=== PATIENT | female | born 1975 | race Caucasian/White ===

== ENCOUNTER 2016-11-12 19:43 | Emergency (ER) | payer OTHER ==
[2016-11-12 19:28] LABS: URINE SOURCE CLEAN CATCH
[2016-11-12 19:30] LABS: URINE APPEARANCE CLEAR; URINE BILIRUBIN NEG (NEG); URINE BLOOD NEG (NEG); URINE COLOR YELLOW; URINE GLUCOSE NEG (NORM); URINE KETONE NEG (NEG); URINE LEUKOCYTE ESTERASE NEG (NEG); URINE NITRATE NEG (NEG); URINE PROTEIN NEG (NEG); URINE SPECIFIC GRAVITY >=1.030 (1.003-1.035); URINE UROBILINOGEN 0.2 MG/DL (NORM)
[2016-11-12 19:31] LABS: MICRO INDICATED? NO
[2016-11-12 19:34] LABS: BASOPHIL# 0.1 X10e3 (0-0.3); BASOPHIL% 0.9 % (0-2.5); EOSINOPHIL# 0.1 X10e3 (0-0.7); HEMATOCRIT 37.1 % (35.0-45.0); HEMOGLOBIN 12.4 gm/dL (12.0-16.0); LYMPHOCYTE# 2.4 X10e3 (1.0-3.5); LYMPHOCYTE% 33.6 % (17.0-45.0); MEAN CORPUSCULAR HEMOGLOBIN 30.4 PG (28-34); MEAN CORPUSCULAR HGB CONC 33.4 g/dL (30-36); MEAN PLATELET VOLUME 7.7 FL (6.5-11.5); MONOCYTE# 0.5 X10e3 (0-1.0); MONOCYTE% 7.6 % (3.0-12.0); NEUTROPHIL% 55.9 % (40-75); PLATELET COUNT 263 X10e3 (140-420); RED BLOOD COUNT 4.08 X10e (3.90-5.30); RED CELL DISTRIBUTION WIDTH 15.1 % (11.0-15.5); WHITE BLOOD COUNT 7.2 X10e3 (4.0-10.5)
[2016-11-12 19:35] LABS: DIFF IND NO
[~2016-11-12 19:43] MED LIST: ALPRAZOLAM PO; ALPRAZOLAM1 MG PO; ATENOLOL25 MG PO; BENADRYL PO; BENTYL20 M1 PO; CELEXA PO; DIPHENHYDRAMINE25 M1 PO; DOXEPIN PO; EFFEXOR50 MG; FLUOXETINE HCL40 M1 PO; HYDROCHLOROTHIA25 MG PO; LORTAB 5/500 TA1 TA1 PO; MOBIC PO; NAPROXEN250 MG PO; NEURONTIN; NO MEDICATIONS; ORUDIS75 M1 PO; PROVERA PO; PROZAC PO; TORADOL10 MG PO; TYLENOL #3 PO; XANAX1 MG PO
[2016-11-12 19:50] LABS: ALBUMIN SERUM 3.8 g/dL (3.5-5.0); ALKALINE PHOSPHATASE 48 U/L (32-92); ALT (SGPT) 11 U/L (10-40); AST (SGOT) 14 U/L (10-42); BILIRUBIN,TOTAL 0.1 mg/dL (0.2-2.0); BLOOD UREA NITROGEN 18 mg/dL (9-23); BUN/CREATININE RATIO 16.36; CALCIUM SERUM 8.9 mg/dL (8.4-10.2); CARBON DIOXIDE 25 mmol/L (22-31); CHLORIDE 103 mmol/L (100-111); CREATININE SERUM 1.1 mg/dL (0.6-1.4); GLOM FILT RATE Estimated 58.2 mL/min (>60); GLUCOSE FASTING 92 mg/dL (70-110); LIPASE 33 U/L (22-51); POTASSIUM 3.9 mmol/L (3.5-5.1); PROTEIN TOTAL SERUM 6.6 g/dL (6.0-8.3); SODIUM 136 mmol/L (135-145)
[2016-11-12 19:51] LABS: BILIRUBIN, DIRECT <0.1 mg/dL (0.0-0.2)
[2017-05-02] MEDS ORDERED: PROZAC40 MG (15:33)
== END 2016-11-12 20:41 | disposition home or self-care (01) ==
LOC: SED 19:43
PROVIDERS: Physician Assistant
DX: R10.84 Generalized abdominal pain (principal); R11.2 Nausea with vomiting, unspecified; J34.89 Other specified disorders of nose and nasal sinuses; F17.210 Nicotine dependence, cigarettes, uncomplicated; Z90.710 Acquired absence of both cervix and uterus; Z98.51 Tubal ligation status
CPT/HCPCS: 36415; 80048; 80076; 81003; 83690; 85025; 96361; 96374; 99284; J2405

== ENCOUNTER 2017-04-23 08:52 | Emergency (ER) | payer OTHER ==
--- NOTE | ~2017-04-23 | CT2 ---
[facility] A Service of [facility] RADIOLOGY TEXT RESULTS PATIENT: REGINA RHOADES LOCATION: SED : 75 UNIT #: [id number] AGE: [address]: Sreekanth Hernandez MD SEX: F ORDER DR: [id number] [address] [id number] MR#: [id number] Acc #: [id number] NAME: REGINA RHOADES : 1975 SEX: F STUDY DATE/TIME: 04/23/2017 10:56 UNIT: SED ROOM: STUDY DESCRIPTION: CT Abd and Pelv W Cont Attending Physician: Sreekanth Hernandez M.D. Ordering Physician: Sreekanth Hernandez M.D. Primary Care Physician: Nikolas Quick M.D. MEDICAL IMAGING REPORT This report is preliminary unless electronic signature is present. EXAM Abdomen and pelvis CT with contrast HISTORY Right-sided abdominal pain, onset today. TECHNIQUE Axial images were obtained with intravenous contrast and oral contrast. 100 cc of Isovue was used. This CT exam was performed with one or more of the following radiation dose reduction techniques: automatic exposure control, adjustment of mA and/or kV according to patient size, and iterative reconstruction. COMPARISON STUDIES 10/01/2016. FINDINGS The lung bases are clear. In the abdomen, no upper abdominal solid organ abnormalities are seen. A LAP band is noted. The position of the band is unchanged from the previous scan. Adjacent to the port for the LAP band, there is a small ventral abdominal wall hernia that contains fat. The hernia sac is slightly larger than on the previous examination. It measures 2.5 x 3.6 cm in diameter. The hernia defect itself is 2.5 cm in diameter. On the previous examination, the hernia sac had measured 2 x 1.4 cm. There is also a small adjacent umbilical hernia that contains fat. It is unchanged. No distended bowel loops are seen. No inflammatory bowel disease is noted. In the pelvis, there is no evidence of adenopathy, mass or fluid collection. The appendix is normal. [facility] A Service of [facility] RADIOLOGY TEXT RESULTS PATIENT: REGINA RHOADES LOCATION: SED : 75 UNIT #: [id number] AGE: [address]: Sreekanth Hernandez MD SEX: F ORDER DR: IMPRESSION 1. Ventral abdominal wall hernia adjacent to the LAP band port contains fat and omentum only but is larger than on the previous examination of 10/01/2016. 2. No change in position of the LAP band. 3. No acute or inflammatory changes are seen in the abdomen or pelvis otherwise. Dictated by... Louis Shanakr M.D. THIS IS AN ELECTRONICALLY VERIFIED REPORT Louis Shankar M.D. at 04/26/2017 7:22 AM KAPIL/vikash TD: 04/24/2017 15:01 JOB #: [id number] MEDICAL IMAGING REPORT Page 1 of 1
[2017-04-23 09:28] LABS: BASOPHIL% 0.6 % (0-2.5); EOSINOPHIL# 0.2 X10e3 (0-0.7); EOSINOPHIL% 2.3 % (0.0-7.0); HEMATOCRIT 39.6 % (35.0-45.0); HEMOGLOBIN 13.5 gm/dL (12.0-16.0); LYMPHOCYTE# 2.4 X10e3 (1.0-3.5); LYMPHOCYTE% 30.7 % (17.0-45.0); MEAN CORPUSCULAR HEMOGLOBIN 32.3 PG (28-34); MEAN PLATELET VOLUME 8.2 FL (6.5-11.5); MONOCYTE# 0.7 X10e3 (0-1.0); NEUTROPHIL# 4.6 X10e3 (1.5-7.1); NEUTROPHIL% 57.4 % (40-75); PLATELET COUNT 230 X10e3 (140-420); RED BLOOD COUNT 4.17 X10e (3.90-5.30); RED CELL DISTRIBUTION WIDTH 13.6 % (11.0-15.5)
[2017-04-23 09:29] LABS: URINE SOURCE CLEAN CATCH
[2017-04-23 09:32] LABS: DIFF IND NO
[2017-04-23 09:36] LABS: URINE APPEARANCE CLEAR; URINE BILIRUBIN NEG (NEG); URINE BLOOD NEG (NEG); URINE COLOR YELLOW; URINE GLUCOSE NEG (NORM); URINE KETONE NEG (NEG); URINE LEUKOCYTE ESTERASE NEG (NEG); URINE NITRATE NEG (NEG); URINE PROTEIN NEG (NEG); URINE SPECIFIC GRAVITY 1.015 (1.003-1.035); URINE UROBILINOGEN 0.2 MG/DL (NORM)
[2017-04-23 09:37] LABS: MICRO INDICATED? NO
[2017-04-23 09:48] LABS: ALBUMIN SERUM 3.6 g/dL (3.5-5.0); ALKALINE PHOSPHATASE 46 U/L (32-92); ALT (SGPT) 10 U/L (10-40); AMYLASE 30 U/L (0-46); AST (SGOT) 13 U/L (10-42); BILIRUBIN,TOTAL 0.2 mg/dL (0.2-2.0); BLOOD UREA NITROGEN 13 mg/dL (9-23); BUN/CREATININE RATIO 14.44; CALCIUM SERUM 8.6 mg/dL (8.4-10.2); CARBON DIOXIDE 24 mmol/L (22-31); CHLORIDE 105 mmol/L (100-111); CREATININE SERUM 0.9 mg/dL (0.6-1.4); GLOM FILT RATE Estimated 78.9 mL/min (>60); GLUCOSE FASTING 103 mg/dL (70-110); LIPASE 25 U/L (22-51); POTASSIUM 3.4 mmol/L (3.5-5.1); PROTEIN TOTAL SERUM 6.4 g/dL (6.0-8.3); SODIUM 135 mmol/L (135-145)
[2017-04-23 09:58] LABS: BILIRUBIN, DIRECT <0.1 mg/dL (0.0-0.2); BILIRUBIN,INDIRECT 0.1 mg/dL (0.0-0.9)
[2017-05-02] MEDS ORDERED: PROZAC40 MG (15:33)
== END 2017-04-23 12:07 | disposition home or self-care (01) ==
LOC: SED 08:52
PROVIDERS: Emergency Medicine
DX: K52.9 Noninfective gastroenteritis and colitis, unspecified (principal); K66.0 Peritoneal adhesions (postprocedural) (postinfection); F17.210 Nicotine dependence, cigarettes, uncomplicated; Z90.710 Acquired absence of both cervix and uterus; Z79.899 Other long term (current) drug therapy; Z88.0 Allergy status to penicillin; Z88.5 Allergy status to narcotic agent
CPT/HCPCS: 36415; 74177; 80048; 80076; 81003; 82150; 83690; 85025; 96361; 96374; 96375; 99284; C9113; J1170; J2405; Q9967

== ENCOUNTER → 2017-05-04 | Day surgery (SDC) | payer OTHER ==
[~2017-05-04] MED LIST changes: +PROZAC40 MG
--- NOTE | ~2017-05-04 | OR ---
Unit #: [id number] #: [id number] Patient: REGINA RHOADES [id number] [address] [place], [place] [address] [id number] O MR#: [id number] NAME: REGINA RHOADES ROOM: Date of Procedure: 05/04/2017 Admission Date: 05/04/2017 Surgeon: David Chow III, M.D. : 1975 Attending Physician: David Chow III, M.D. Primary Care Physician: Nikolsa Quick M.D. PROCEDURE OPERATIVE NOTE PREOPERATIVE DIAGNOSIS Incarcerated ventral hernia. POSTOPERATIVE DIAGNOSIS Incarcerated ventral hernia. PROCEDURE PERFORMED Laparoscopic ventral hernia repair with 6-inch Ventralight mesh. SURGEON Dr. David Chow. FUR FINISHER SEAMSTRESS Dr. Maneul Mccray. SPECIMENS None. COMPLICATIONS None apparent. ESTIMATED BLOOD LOSS Minimal. ANESTHESIA General endotracheal tube anesthesia. INDICATION FOR PROCEDURE This is a 42-year-old lady who has been having some pain in the periumbilical region. She had a CT scan, which showed an incarcerated ventral hernia. It is adjacent to her Lap-Band port site. She is here today for repair. DESCRIPTION OF PROCEDURE After consent was obtained, the patient was brought to the operating room and placed in the supine position. General anesthetic was administered, and her abdomen was prepped and draped in the standard surgical fashion. I made a 5-mm incision in the right upper quadrant, used an Optiview to enter the peritoneal cavity without any difficulty. CO2 pneumoperitoneum was then established. I then placed a second 5-mm port in the right lower quadrant, a 10-mm port in the left upper quadrant and a 5-mm port in the left lower quadrant. She had some midline fatty tissue that had incarcerated into the hernia, which was easily reduced. The hernia defect Unit #: [id number] #: [id number] Patient: REGINA RHOADES measured approximately 2.5 cm in diameter. It was adjacent to the umbilicus but not related to her port site from the Lap-Band. I took down the falciform ligament, as well as some fatty midline tissue along the anterior abdominal wall so that the mesh would lie nice and flat. I measured out that a 6-inch piece of Ventralight would widely cover this defect with 5-cm margins. I then placed 4 corner sutures along the mesh. It was rolled up and passed into the abdominal cavity. The mesh was unrolled, and then I gathered the tails of the sutures to position the mesh so that the rough side was toward the fascia and the smooth side was toward the viscera. I then used the SorbaFix tacker to place both an outer and inner row of tacks to hold the mesh in place. I had excellent hemostasis. All needle, sponge and instrument counts were correct x2. I removed all the trocars and released the pneumoperitoneum. All the incision were injected 0.25% plain Marcaine, and I reapproximated the skin edges with interrupted 4-0 Vicryl subcuticular suture. Steri-Strips were then applied. The patient tolerated the procedure without any problems and returned to the recovery room in stable condition. Dictated by... David Chow III, M.D. VCL/madison TD: 05/05/2017 19:32 JOB #: [id number] CC: Jeanette Nj A.P.R.N. PROCEDURE OPERATIVE NOTE Page 1 of 1 X David Chow III, MD PROCEDURE OPERATIVE NOTE
--- NOTE | ~2017-05-04 | OR ---
Unit #: [id number] #: [id number] Patient: REGINA RHOADES [id number] [address] [place], [place] [address] [id number] O MR#: [id number] NAME: REGINA RHOADES ROOM: Date of Procedure: 05/04/2017 Admission Date: 05/04/2017 Surgeon: David Chow III, M.D. : 1975 Attending Physician: David Chow III, M.D. Primary Care Physician: Nikolas Quick M.D. OPERATIVE REPORT PREOPERATIVE DIAGNOSIS Incarcerated ventral hernia. POSTOPERATIVE DIAGNOSIS Incarcerated ventral hernia. PROCEDURE PERFORMED Laparoscopic ventral hernia repair with 6- inch Ventralight mesh. ORIENTAL RUG STRETCHER Dr. Manuel Mccray. SPECIMENS None. COMPLICATIONS None apparent. ESTIMATED BLOOD LOSS Minimal. ANESTHESIA General endotracheal tube anesthesia. INDICATIONS FOR PROCEDURE This is a 42-year-old lady, who has been having some pain in the periumbilical region and she had a CT scan, which showed an incarcerated ventral hernia. It is adjacent to her lap-band port site. She is here today for repair. DESCRIPTION OF PROCEDURE After consent was obtained, the patient was brought to the operating room and placed in the supine position. General anesthetic was administered and her abdomen was prepped and draped in standard surgical fashion. I made a 5-mm incision in the right upper quadrant. I used an Optiview to enter into the peritoneal cavity without any difficulty. CO2 pneumoperitoneum was then established. I then placed a second 5-mm port in the right lower quadrant, a 10-mm port in the left upper quadrant, and a 5-mm port in the left lower quadrant. She had some midline fatty tissue that had incarcerated into the hernia which was easily reduced. The hernia defect measured approximately 2.5 cm in diameter. It was adjacent to the umbilicus, but not related to her port site from the lap-band. I Unit #: [id number] #: [id number] Patient: REGINA RHOADES took down the falciform ligament as well as some fatty midline tissue along the anterior abdominal wall, so that the mesh would lay nice and flat. I measured out that a 6- inch piece of Ventralight would widely cover this defect with a 5 cm margins. I then placed 4 corner sutures along the mesh. It was rolled up and passed into the abdominal cavity. The mesh was unrolled and then I gather the tails of the sutures to position the mesh, so that the rough side was towards the fascia and the smooth side was towards the viscera. I then used a SorbaFix Tacker to place both outer and inner row of tacks to hold the mesh in place. I had excellent hemostasis. All needle, sponge, and instrument counts were correct x2. I removed all the trocars and released the pneumoperitoneum. All the incisions were injected with 0.25% plain Marcaine and I reapproximated the skin edges with interrupted 4-0 Vicryl subcuticular suture. Steri-Strips were then applied. The patient tolerated the procedure without any problems and returned to the recovery room in stable condition. Dictated by... David Chow III, M.D. VCL/karl TD: 05/05/2017 10:54 JOB #: [id number] CC: Jeanette Nj A.P.R.N. OPERATIVE REPORT Page 1 of 1 X David Chow III, MD PROCEDURE OPERATIVE NOTE
== END | disposition home or self-care (01) ==
LOC: CSUR 09:28
DX: K43.6 Other and unspecified ventral hernia with obstruction, without gangrene (principal); M19.90 Unspecified osteoarthritis, unspecified site; F17.210 Nicotine dependence, cigarettes, uncomplicated; Z87.440 Personal history of urinary (tract) infections; Z88.0 Allergy status to penicillin; Z88.8 Allergy status to other drugs, medicaments and biological substances; Z79.899 Other long term (current) drug therapy; Z90.710 Acquired absence of both cervix and uterus; Z98.51 Tubal ligation status; Z98.84 Bariatric surgery status
CPT/HCPCS: C1781; J0330; J1650; J1885; J2250; J2405; J2710; J3010; J3370